=== PATIENT | female | born 1990 | race Caucasian/White ===

== ENCOUNTER 2020-01-31 01:55 | Emergency (ER) | payer OTHER ==
[~2020-01-31] VITALS: Ht 160 cm; Wt 52.2 kg
[2020-01-31 02:00] VITALS: BP 143/73
--- NOTE | 2020-01-31 02:00 | NUR ---
ED Nurse Note: PT BROUGHT IN BY AMBULANCE C/O CP, SOB, AND NV. PER BOYFRIEND, SHE INGESTED THC GUMMIES OF 70MG AT AROUND 0030 TODAY. PT STATES THIS IS NOT HER FIRST INGESTION BUT SHE DOES NOT KNOW HOW MUCH SHE TOOK. PT IS RESTLESS AND AGITATED. TACHY OF 135 HR, OTHERWISE VSS, AAOX3, ERMD AT BEDSIDE. WILL CONTINUE TO MONITOR PATIENT,.
[2020-01-31] MEDS ORDERED: DiphenhydrAMINE 50mg/ml Inj IVP ONE (02:15)
[2020-01-31] MEDS ORDERED: LORazepam Inj 2mg/ml 1ml IV ONE (02:15)
--- NOTE | 2020-01-31 02:15 | NUR ---
ED Nurse Note: BLOOD DRAWN, MED ADMINISTERED.
--- NOTE | 2020-01-31 02:16 | Emergency Room Report ---
History of Present Illness General Chief Complaint: Substance Abuse Source: EMS Present Illness HPI Is a 29-year-old female brought in by EMS after increased nausea and vomiting. Patient had onset of symptoms after ingesting a marijuana gummy bear. Patient had multiple episodes of nonbloody emesis. She reports feeling somewhat agitated. Patient had ingestion approximate 1 hour prior to Arrival. Denies any fever. Allergies: Coded Allergies: No Known Allergies (Unverified , 01/31/20) COVID-19 Screening Contact w/high risk pt: No Recent Travel to affected area: No Experienced COVID-19 symptoms?: No Patient History Past Medical History: see triage record Last Menstrual Period: unk Reviewed Nursing Documentation: PMH: Agreed; PSxH: Agreed Review of Systems All Other Systems: negative except mentioned in HPI Physical Exam Vital Signs Date Time Temp Pulse Resp B/P (MAP) Pulse Ox O2 Delivery O2 Flow Rate FiO2 01/31/20 01:59 97.2 151 20 143/73 (96) 100 Sp02 EP Interpretation: reviewed, normal General Appearance: normal inspection, well appearing, no apparent distress, alert, GCS 15 Head: atraumatic ENT: normal ENT inspection, hearing grossly normal, normal voice Neck: normal inspection, full range of motion, supple, no bony tend Respiratory: normal inspection, lungs clear, normal breath sounds, no respiratory distress, no retraction, no wheezing Cardiovascular #1: no edema, tachycardia Gastrointestinal: normal inspection, normal bowel sounds, non tender, soft, no guarding, no hernia Genitourinary: no CVA tenderness Musculoskeletal: normal inspection, back normal, normal range of motion Neurologic: alert, responsive, speech normal, normal inspection Psychiatric: normal inspection, judgement/insight normal, mood/affect normal Medical Decision Making Diagnostic Impression: Primary Impression: Substance abuse Additional Impression: Dehydration ER Course Patient presented for nausea vomiting. Differential diagnosis include was not limited to dehydration, marijuana intoxication, electrolyte abnormality among others. Because of complexity of patient's case laboratory tests and imaging studies were ordered. Patient given IV fluids with improvement. Patient's heart rate and nausea were noted to be marked markedly improved. Patient will be discharged home. Patient was advised to discontinue marijuana use and to continue hydration at home. Patient is advised to return if any worsening condition or if any changes in status that are concerning. This report is dictated with [employer] assistant software which may occasionally lead to discrepancies related to use of this software. Labs Test 01/31/20 02:07 White Blood Count 14.2 K/UL (4.8-10.8) Red Blood Count 4.21 M/UL (4.20-5.40) Hemoglobin 13.4 G/DL (12.0-16.0) Hematocrit 37.9 % (37.0-47.0) Mean Corpuscular Volume 90 FL (80-99) Mean Corpuscular Hemoglobin 31.9 PG (27.0-31.0) Mean Corpuscular Hemoglobin Concent 35.5 G/DL (32.0-36.0) Red Cell Distribution Width 10.4 % (11.6-14.8) Platelet Count 376 K/UL (150-450) Mean Platelet Volume 7.3 FL (6.5-10.1) Neutrophils (%) (Auto) % (45.0-75.0) Lymphocytes (%) (Auto) % (20.0-45.0) Monocytes (%) (Auto) % (1.0-10.0) Eosinophils (%) (Auto) % (0.0-3.0) Basophils (%) (Auto) % (0.0-2.0) Sodium Level 142 MMOL/L (136-145) Potassium Level 3.6 MMOL/L (3.5-5.1) Chloride Level 103 MMOL/L (98-107) Carbon Dioxide Level 22 MMOL/L (21-32) Anion Gap 17 mmol/L (5-15) Blood Urea Nitrogen 14 mg/dL (7-18) Creatinine 0.9 MG/DL (0.55-1.30) Estimat Glomerular Filtration Rate > 60 mL/min (>60) Glucose Level 208 MG/DL (74-106) Calcium Level 8.8 MG/DL (8.5-10.1) Total Bilirubin 0.3 MG/DL (0.2-1.0) Aspartate Amino Transf (AST/SGOT) 15 U/L (15-37) Alanine Aminotransferase (ALT/SGPT) 24 U/L (12-78) Alkaline Phosphatase 54 U/L (46-116) Troponin I 0.000 ng/mL (0.000-0.056) Total Protein 7.7 G/DL (6.4-8.2) Albumin 4.6 G/DL (3.4-5.0) Globulin 3.1 g/dL Albumin/Globulin Ratio 1.5 (1.0-2.7) Salicylates Level 1.3 ug/mL (2.8-20) Acetaminophen Level < 2 MCG/ML (10-30) Serum Alcohol < 3 mg/dL EKG Diagnostic Results Rate: tachycardiac Rhythm: NSR - 133 Rhythm Strip Diag. Results EP Interpretation: yes Rhythm: NSR, no PVC's, no ectopy Last Vital Signs Date Time Temp Pulse Resp B/P (MAP) Pulse Ox O2 Delivery O2 Flow Rate FiO2 01/31/20 01:59 97.2 151 20 143/73 (96) 100 Status: improved Disposition: HOME, SELF-CARE Condition: Stable Scripts Ondansetron Odt* (ZOFRAN ODT*) 4 Mg Tab.rapdis 4 MG BC EVERY 8 HOURS PRN for Nausea & Vomiting, #10 TAB 0 Refills Prov: Miah Law MD 01/31/20 Referrals: NOT CHOSEN IPA/,REFERRING (PCP) Miah Law MD Jan 31, 2020 02:16
[2020-01-31 02:27] LABS: HEMATOCRIT 37.9 % (37.0-47.0); HEMOGLOBIN 13.4 G/DL (12.0-16.0); MEAN CORPUSCULAR VOLUME 90 FL (80-99); PLATELET COUNT 376 K/UL (150-450); RED BLOOD COUNT 4.21 M/UL (4.20-5.40); RED CELL DISTRIBUTION WIDTH 10.4 % (11.6-14.8); WHITE BLOOD COUNT 14.2 K/UL (4.8-10.8)
--- NOTE | 2020-01-31 02:30 | NUR ---
ED Nurse Note: PT IS UNABLE TO PROVIDE URINE AT THIS TIME. WILL ATTEMPT AGAIN AT A LATER TIME.
[2020-01-31 02:31] LABS: ALANINE AMINOTRANSFERASE 24 U/L (12-78); ALBUMIN 4.6 G/DL (3.4-5.0); ALBUMIN/GLOBULIN RATIO 1.5 (1.0-2.7); ALKALINE PHOSPHATASE 54 U/L (46-116); ANION GAP 17 mmol/L (5-15); ASPARTATE AMINO TRANSFERASE 15 U/L (15-37); BILIRUBIN,TOTAL 0.3 MG/DL (0.2-1.0); BLOOD UREA NITROGEN 14 mg/dL (7-18); CALCIUM 8.8 MG/DL (8.5-10.1); CARBON DIOXIDE 22 MMOL/L (21-32); CHLORIDE 103 MMOL/L (98-107); CREATININE 0.9 MG/DL (0.55-1.30); POTASSIUM 3.6 MMOL/L (3.5-5.1); SODIUM 142 MMOL/L (136-145)
[2020-01-31] MEDS ORDERED: ONDANSETRON ODT4 MG BC (05:08)
[2020-01-31 05:57] VITALS: BP 110/62
[2020-01-31 06:00] VITALS: BP 110/62
--- NOTE | 2020-01-31 06:00 | NUR ---
ER DISCHARGE NOTE: Patient is cleared to be discharged per ERMD, pt is aox4, on room air, with stable vital signs. pt was given dc and prescription instructions, pt was able to verbalize understanding, pt id band and iv site removed without complications. pt is able to ambulate with steady gait. pt took all belongings.
== END 2020-01-31 06:00 | disposition home or self-care (01) ==
LOC: EDBD 01:55 → EMR 02:11
DX: F12.10 Cannabis abuse, uncomplicated (principal); E86.0 Dehydration; R11.2 Nausea with vomiting, unspecified
CPT/HCPCS: 36415; 80053; 80307; 81025; 84484; 85025; 96361; 96374; 96375; 99284; G0480; J1200; J7030